=== PATIENT | male | born 1985 | race Caucasian/White ===

== ENCOUNTER 2017-04-08 10:39 | Emergency (ER) | payer OTHER ==
[2017-04-08 12:31] LABS: Basophils % (Auto) 0.5 % (0.0-1.8); Eosinophils % (Auto) 0.3 % (0.0-4.3); Hematocrit 39.2 % (35.5-45.6); Hemoglobin 13.3 gm/dl (11.8-15.2); Mean Corpuscular HGB Conc 34 % (32-34); Mean Corpuscular Hemoglobin 31 pg (28-32); Mean Corpuscular Volume 93 fl (84-94); Platelet Count 189 K/mm3 (140-440); Red Blood Count 4.23 M/mm3 (3.65-5.03); Red Cell Distribution Width 13.3 % (13.2-15.2); White Blood Count 7.5 K/mm3 (4.5-11.0)
--- NOTE | 2017-04-08 12:42 | XRay Report ---
CHEST 2 VIEWS INDICATION: Shortness of breath. COMPARISON: None similar at this institution. FINDINGS: PA and lateral chest radiographs demonstrate normal cardiomediastinal silhouette. Clear lungs. Intact bones. CONCLUSION: No acute disease in the chest. Thank you for the opportunity to participate in this patient's care.
[2017-04-08 12:45] LABS: Anion Gap 20 mmol/L; BUN/Creatinine Ratio 11; Blood Urea Nitrogen 8 mg/dL (9-20); Calcium 8.8 mg/dL (8.4-10.2); Carbon Dioxide 23 mmol/L (22-30); Chloride 95.8 mmol/L (98-107); Glucose 83 mg/dL (75-100); Potassium 3.8 mmol/L (3.6-5.0); Sodium 135 mmol/L (137-145)
--- NOTE | 2017-04-08 14:09 | Emergency Department Report ---
ED General Adult HPI - General Chief complaint: Upper Respiratory Infection Stated complaint: HIV/PNEUMONIA Time Seen by Provider: 04/08/17 14:05 Source: patient, RN notes reviewed Mode of arrival: Ambulatory Limitations: No Limitations - History of Present Illness Initial comments: This is a 31-year-old male who was previously unknown to this provider, patient endorses a past medical history of bipolar disorder, ADHD, hepatitis C, HIV, currently on highly active antiretroviral therapy, reports compliance with his medications, reports CD4 count is 289, reports viral load is 17,000. Patient presents to the ER with coughing green mucus production for 9 days, sensation of ear fullness, decreased hearing, cough, wheezing, mucus production , and incidentally noting 4 episodes of syncope over the past 9 days. The cough , wheezing, mucus production, ear pain are constant, may do not radiate anywhere , and they do not have exacerbating or relieving factors. Patient endorses that syncope happens after he coughs, and occasionally when just "sitting down. " There is no leg pain, there is no leg swelling, no recent trips, no recent surgeries, no chest pain, no shortness of breath. -: Gradual, days(s) Severity scale (0 -10): 5 Consistency: intermittent Improves with: none Worsens with: none Associated Symptoms: cough, shortness of breath, syncope. denies: confusion, chest pain, diaphoresis, loss of appetite, malaise, nausea/vomiting, seizure - Related Data Previous Rx's Medication Instructions Recorded Last Taken Type Acetaminophen [Tylenol Arthritis] 650 mg PO Q6HR PRN #30 tablet.er 04/08/17 Unknown Rx Albuterol Sulfate [Proair 90 mcg IH Q4HR PRN #2 aer.pow.ba 04/08/17 Unknown Rx Respiclick] Azithromycin 250 mg PO QDAY #6 tablet 04/08/17 Unknown Rx Fluticasone [Flonase] 1 spray NS QDAY #1 bottle 04/08/17 Unknown Rx Ibuprofen [Motrin] 600 mg PO Q8H PRN #30 tablet 04/08/17 Unknown Rx predniSONE [Deltasone] 40 mg PO QDAY #8 tab 04/08/17 Unknown Rx Allergies Allergy/AdvReac Type Severity Reaction Status Date / Time No Known Allergies Allergy Verified 04/08/17 11:15 ED Review of Systems ROS: Stated complaint: HIV/PNEUMONIA Other details as noted in HPI ED Past Medical Hx - Past Medical History Hx Psychiatric Treatment: Yes (Bipolar disorder, ADHD) Hx HIV: Yes Additional medical history: Hep C - Surgical History Past Surgical History?: Yes Additional Surgical History: L mandiblular surgery - Medications Home Medications: Home Medications Medication Instructions Recorded Confirmed Last Taken Type Acetaminophen [Tylenol Arthritis] 650 mg PO Q6HR PRN #30 tablet.er 04/08/17 Unknown Rx Albuterol Sulfate [Proair 90 mcg IH Q4HR PRN #2 aer.pow.ba 04/08/17 Unknown Rx Respiclick] Azithromycin 250 mg PO QDAY #6 tablet 04/08/17 Unknown Rx Fluticasone [Flonase] 1 spray NS QDAY #1 bottle 04/08/17 Unknown Rx Ibuprofen [Motrin] 600 mg PO Q8H PRN #30 tablet 04/08/17 Unknown Rx predniSONE [Deltasone] 40 mg PO QDAY #8 tab 04/08/17 Unknown Rx ED Physical Exam - General Limitations: No Limitations General appearance: alert, in no apparent distress - Head Head exam: Present: atraumatic, normocephalic - Eye Eye exam: Present: normal appearance, PERRL, EOMI. Absent: nystagmus - ENT ENT exam: Present: normal exam, normal orophraynx, mucous membranes moist. Absent: TM's normal bilaterally (bilateral tympanic membrane erythema is noted. There is no mastoid tenderness.) - Neck Neck exam: Present: normal inspection - Respiratory Respiratory exam: Present: wheezes. Absent: respiratory distress - Cardiovascular Cardiovascular Exam: Present: regular rate, normal rhythm, normal heart sounds. Absent: systolic murmur, diastolic murmur, rubs, gallop - GI/Abdominal GI/Abdominal exam: Present: soft, normal bowel sounds. Absent: distended, tenderness, guarding, rebound, rigid, pulsatile mass - Rectal Rectal exam: Present: deferred - Extremities Exam Extremities exam: Present: normal inspection, full ROM, normal capillary refill. Absent: pedal edema, joint swelling, calf tenderness - Back Exam Back exam: Present: normal inspection, full ROM. Absent: tenderness, CVA tenderness (R), paraspinal tenderness, vertebral tenderness - Neurological Exam Neurological exam: Present: alert, oriented X3, CN II-XII intact, normal gait, other (Extraocular movements intact. Tongue midline. No facial droop. Facial sensation intact to light touch in the V1, V2, V3 distribution bilaterally. 5 and 5 strength in 4 extremities.. Sensation is intact to light touch in 4 extremities.). Absent: motor sensory deficit - Psychiatric Psychiatric exam: Present: normal affect, normal mood - Skin Skin exam: Present: warm, dry, intact, normal color. Absent: rash ED Course Vital Signs 04/08/17 04/08/17 04/08/17 11:15 12:30 13:44 Temperature 98.4 F Pulse Rate 84 Pulse Rate [ Posterior Bilateral Throughout] Respiratory 18 Rate Respiratory Rate [Posterior Bilateral Throughout] Blood Pressure 140/100 106/63 Blood Pressure [Right] O2 Sat by Pulse 95 100 Oximetry 04/08/17 04/08/17 04/08/17 13:48 13:50 14:01 Temperature 99 F Pulse Rate Pulse Rate [ Posterior Bilateral Throughout] Respiratory 20 Rate Respiratory Rate [Posterior Bilateral Throughout] Blood Pressure 133/86 Blood Pressure 128/96 [Right] O2 Sat by Pulse 95 94 97 Oximetry 04/08/17 04/08/17 04/08/17 14:15 14:30 14:38 Temperature Pulse Rate Pulse Rate [ 943 H Posterior Bilateral Throughout] Respiratory Rate Respiratory 16 Rate [Posterior Bilateral Throughout] Blood Pressure 128/94 134/97 Blood Pressure [Right] O2 Sat by Pulse 98 97 Oximetry 04/08/17 04/08/17 04/08/17 14:45 15:00 15:23 Temperature Pulse Rate Pulse Rate [ Posterior Bilateral Throughout] Respiratory Rate Respiratory Rate [Posterior Bilateral Throughout] Blood Pressure 134/88 142/77 124/98 Blood Pressure [Right] O2 Sat by Pulse 98 98 99 Oximetry 04/08/17 04/08/17 04/08/17 15:30 15:45 16:01 Temperature Pulse Rate Pulse Rate [ Posterior Bilateral Throughout] Respiratory Rate Respiratory Rate [Posterior Bilateral Throughout] Blood Pressure 129/88 136/88 130/80 Blood Pressure [Right] O2 Sat by Pulse 97 99 97 Oximetry 04/08/17 04/08/17 04/08/17 16:15 16:30 16:45 Temperature Pulse Rate Pulse Rate [ Posterior Bilateral Throughout] Respiratory Rate Respiratory Rate [Posterior Bilateral Throughout] Blood Pressure 146/106 142/94 132/83 Blood Pressure [Right] O2 Sat by Pulse 86 96 80 L Oximetry 04/08/17 18:05 Temperature 99 F Pulse Rate 84 Pulse Rate [ Posterior Bilateral Throughout] Respiratory Rate Respiratory Rate [Posterior Bilateral Throughout] Blood Pressure Blood Pressure 128/96 [Right] O2 Sat by Pulse 80 L Oximetry - Reevaluation(s) Reevaluation #1: 04/08/17 15:13 Differential diagnosis, including but not limited to: Acute coronary syndrome, structural cardiac disease, arrhythmia, pulmonary embolus, pneumonia, pneumonitis, bronchitis, otitis media, viral syndrome Assessment and plan: 31-year-old male, HIV positive, on highly active antiretroviral therapy, endorsing otalgia, decreased auditory acuity, cough, wheezing, mucus production, and incidental episode of syncope, 4. In the emergency room the patient is afebrile with reassuring vital signs and is playing in a cellular phone. The patient has been observed in the ER for 5 hours so far, with no episodes of documented arrhythmia, no episodes of hypotension. Low risk by well's criteria, think pulmonary embolus is very unlikely. Symptoms have been going on for over 9 days, low risk by CONSUELO score, low risk by heart score, troponin negative 1, EKG unremarkable 1. Highly doubt thromboembolic disease, patient will be given albuterol, Atrovent, steroids, noncontrast CT scan of his head is ordered because he thinks that he fell and hit his head. He has a GCS of 15, with an NIH score of 0, denies sudden thunderclap headache, therefore think to cranial hemorrhage is very unlikely. Reevaluation #2: 04/08/17 16:25 No episodes of syncope noted in the ER. Repeat EKG is unremarkable and unchanged with the exception of high left ventricular voltage. Noncontrast CT scan of the brain is negative. Reevaluation #3: 04/08/17 16:26 There is no mastoid tenderness, the right ear has minimal erythema over the tympanic membrane, there is no any asymmetry to the helix. , clinically feel the patient's presentation not consistent with otomastoiditis. 04/08/17 18:55 Reevaluation #4: 04/08/17 16:54 D-dimer is negative. Troponin negative 2. Vital signs stable. Heart rate in the 80s. Patient playing on a cellular phone. Wheezing is improved. Does not desaturate. No episodes of syncope in the ER for hours. Patient will be discharged at this time, he can follow up with outpatient cardiology for his history of syncope. ED Medical Decision Making - Lab Data Result diagrams: 04/08/17 12:10 04/08/17 12:10 Vital Signs 04/08/17 04/08/17 04/08/17 11:15 13:44 13:48 Temperature 98.4 F Pulse Rate 84 Pulse Rate [ Posterior Bilateral Throughout] Respiratory 18 Rate Respiratory Rate [Posterior Bilateral Throughout] Blood Pressure 140/100 Blood Pressure [Right] O2 Sat by Pulse 95 100 95 Oximetry 04/08/17 04/08/17 13:50 14:38 Temperature 99 F Pulse Rate Pulse Rate [ 943 H Posterior Bilateral Throughout] Respiratory 20 Rate Respiratory 16 Rate [Posterior Bilateral Throughout] Blood Pressure Blood Pressure 128/96 [Right] O2 Sat by Pulse 94 Oximetry Contrary to what is documented, pulse rate of 943 is very likely, this is most likely an error Labs 04/08/17 04/08/17 04/08/17 12:10 12:10 Unknown WBC 7.5 RBC 4.23 Hgb 13.3 Hct 39.2 MCV 93 MCH 31 MCHC 34 RDW 13.3 Plt Count 189 Lymph % (Auto) 30.5 Hardy % (Auto) 9.6 H Eos % (Auto) 0.3 Baso % (Auto) 0.5 Lymph # 2.3 Hardy # 0.7 Eos # 0.0 Baso # 0.0 Seg Neutrophils % 59.1 Seg Neutrophils # 4.5 Sodium 135 L Potassium 3.8 Chloride 95.8 L Carbon Dioxide 23 Anion Gap 20 BUN 8 L Creatinine 0.7 L Estimated GFR > 60 BUN/Creatinine Ratio 11 Glucose 83 Calcium 8.8 Troponin T < 0.010 - EKG Data 04/08/17 15:15 Normal sinus, 77 bpm, normal axis, normal intervals, not morphologically consistent with ST elevation myocardial infarction - Radiology Data Radiology results: report reviewed, image reviewed X-ray the chest, negative for acute disease Referring Physician: SONYA SYKES Patient Name: CHRISTY KO Date of : 1985 Sex: Male Report Date: 2017-04-08 Report Status: Finalized Findings [facility] [address] [place] [address] Cat Scan Report Signed Patient: CHRISTY KO MR#: [id number] : 1985 Acct:[id number] Age/Sex: 31 / M ADM Date: 04/08/17 Loc: ED Attending Dr: Ordering Physician: SONYA SYKES MD Date of Service: 04/08/17 Procedure(s): CT head/brain wo con Accession Number(s): [id number] cc: SONYA SYKES MD FINAL REPORT PROCEDURE: CT HEAD/BRAIN WO CON TECHNIQUE: Computerized tomography of the head was performed without contrast material. HISTORY: syncope COMPARISON: None FINDINGS: Brain volume is age appropriate. There is no CT evident acute infarction. There is no remote infarct, mass effect or shift of midline structures. There is no gross mass lesion or leptomeningeal abnormality given limitation of lack of IV contrast. No intra or extra-axial hemorrhage is identified. The skull base and calvarium are intact. Chronic bilateral ethmoidal, sphenoidal, and partially imaged maxillary sinusitis is present as well as partial opacification of the right mastoid air cells and right middle ear. IMPRESSION: No CT evident intracranial abnormality. Chronic sinusitis. Right otomastoiditis. Transcribed By: WILBERTO Dictated By: SINGH HERNÁNDEZ MD Electronically Authenticated By: SINGH HERNÁNDEZ MD Signed Date/Time: 04/08/171213 DD/ 13 TD/TT: 04/08/171213 Critical care attestation.: If time is entered above; I have spent that time in minutes in the direct care of this critically ill patient, excluding procedure time. ED Disposition Clinical Impression: Bronchitis, History of syncope Disposition: DC-01 TO HOME OR SELFCARE Is pt being admited?: No Does the pt Need Aspirin: No Condition: Stable Instructions: Acute Bronchitis (ED) Additional Instructions: Continue current outpatient medications. Follow up with a primary care doctor or retreader within the next 7-10 [address] not drive a car or operate motor vehicles until cleared to do so by either her primary care doctor or retreader. In general, patient should not drive a car or operate motor vehicles for the next 6 months, unless cleared by either primary care or cardiology. Follow-up with any illicit primary care doctors are retreader as recommended. Take the cough medication, breathing medication, antibiotics as directed. Return to the ER right away with fevers, chills, lethargy, irritability, projectile vomiting, change in mental status, confusion, inability to tolerate liquid feeds. Return to the ER right away with recurrent loss of consciousness. Prescriptions: Acetaminophen [Tylenol Arthritis] 650 mg PO Q6HR PRN #30 tablet.er PRN Reason: Pain Albuterol Sulfate [Proair Respiclick] 90 mcg IH Q4HR PRN #2 aer.pow.ba PRN Reason: Wheezing Azithromycin 250 mg PO QDAY #6 tablet Fluticasone [Flonase] 1 spray NS QDAY #1 bottle Ibuprofen [Motrin] 600 mg PO Q8H PRN #30 tablet PRN Reason: Pain predniSONE [Deltasone] 40 mg PO QDAY #8 tab Referrals: PRIMARY CARE, [Primary Care Provider] - 3-5 Days [facility] [Provider Group] - 3-5 Days [facility] [Provider Group] - 3-5 Days
[2017-04-08] MEDS ORDERED: MAGNESIUM SULFATE 2GM/50ML 2 GM/50 ML BAG IV ONE (14:32)
[2017-04-08] MEDS ORDERED: PROVENTIL IH ONE ×2 (14:32→14:33)
[2017-04-08] MEDS ORDERED: ATROVENT IH ONE ×2 (14:32→14:33)
[2017-04-08] MEDS ORDERED: NACL 0.9% 500 ML 500 ML IV ONE (14:32)
--- NOTE | 2017-04-08 16:18 | Cat Scan Report ---
FINAL REPORT PROCEDURE: CT HEAD/BRAIN WO CON TECHNIQUE: Computerized tomography of the head was performed without contrast material. HISTORY: syncope COMPARISON: None FINDINGS: Brain volume is age appropriate. There is no CT evident acute infarction. There is no remote infarct, mass effect or shift of midline structures. There is no gross mass lesion or leptomeningeal abnormality given limitation of lack of IV contrast. No intra or extra-axial hemorrhage is identified. The skull base and calvarium are intact. Chronic bilateral ethmoidal, sphenoidal, and partially imaged maxillary sinusitis is present as well as partial opacification of the right mastoid air cells and right middle ear. IMPRESSION: No CT evident intracranial abnormality. Chronic sinusitis. Right otomastoiditis.
[2017-04-08 16:22] LABS: INR 0.9 (0.87-1.13)
[2017-04-08 16:23] LABS: Partial Thromboplastin Time 30.3 Sec. (24.2-36.6)
[2017-04-08 18:06] VITALS: BP 128/96
== END 2017-04-08 17:35 | disposition home or self-care (01) ==
LOC: ED 10:39
DX: J40 Bronchitis, not specified as acute or chronic (principal); R55 Syncope and collapse; F31.9 Bipolar disorder, unspecified; F90.9 Attention-deficit hyperactivity disorder, unspecified type; Z86.19 Personal history of other infectious and parasitic diseases
CPT/HCPCS: 36415; 70450; 71020; 80048; 84484; 85025; 85379; 85610; 85730; 87040; 93005; 93010; 94640; 96365; 96375; 99285; J2930; J3475; J7040